=== PATIENT | male | born 1995 | race Caucasian/White ===

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

== ENCOUNTER 2017-01-05 09:51 | Emergency (ER) | payer OTHER ==
[2017-01-05 09:51] VITALS: BMI 47.4
[2017-01-05 10:16] VITALS: O2SAT 96
--- NOTE | 2017-01-05 10:47 | C.PDOC ---
History Of Present Illness 21 yr old male with PMHx of asthma, no hx of intubation or recent ICU admission , obesity, and autism, brought in to ER by mom for evaluation of retrosternal chest pain for the past 2-3 days. Patient describes pain as constant, mild, "annoying", localized and non radiating. Otherwise, pt and mom denies fever, chills, recent illness, headache, dizziness, SOB, palpitations, wheezing, cough , nausea, vomiting, abdominal pain, diarrhea,back pain, denies any other active complaints. Time Seen by Provider: 01/05/17 10:08 Chief Complaint (Nursing): Chest Pain History Per: Patient, Family (Mom) History/Exam Limitations: no limitations Onset/Duration Of Symptoms: Days (2-3 days) Past Medical History Reviewed: Historical Data, Nursing Documentation, Vital Signs Vital Signs: Last Vital Signs Temp 98.4 F 01/05/17 10:01 Pulse 89 01/05/17 10:01 Resp 22 01/05/17 10:01 BP 148/97 H 01/05/17 10:01 Pulse Ox 96 01/05/17 12:26 - Medical History PMH: Asthma Family History: States: No Known Family Hx - Social History Hx Tobacco Use: No Hx Alcohol Use: No Hx Substance Use: No - Immunization History Hx Tetanus Toxoid Vaccination: No Hx Influenza Vaccination: Yes Hx Pneumococcal Vaccination: No Review Of Systems Except As Marked, All Systems Reviewed And Found Negative. Constitutional: Negative for: Fever, Chills Cardiovascular: Positive for: Chest Pain (Retrosternal chest pain ). Negative for: Palpitations Respiratory: Negative for: Cough, Shortness of Breath, Wheezing Gastrointestinal: Negative for: Nausea, Vomiting, Abdominal Pain, Diarrhea Neurological: Negative for: Weakness, Numbness, Headache Physical Exam - Physical Exam Appears: Well, Non-toxic, No Acute Distress Skin: Warm, Dry, No Rash Eye(s): bilateral: PERRL Oral Mucosa: Moist, No Drooling Throat: No Erythema, No Drooling Neck: Trachea Midline, Supple Chest: Symmetrical, No Tenderness Cardiovascular: Rhythm Regular, No Murmur Respiratory: No Decreased Breath Sounds, No Accessory Muscle Use, No Stridor, No Wheezing Gastrointestinal/Abdominal: Soft, No Tenderness, No Distention, No Guarding, No Rebound Extremity: Normal ROM, No Pedal Edema, No Swelling Neurological/Psych: Oriented x3, Normal Speech, Normal Motor ED Course And Treatment - Laboratory Results Result Diagrams: 01/05/17 11:44 01/05/17 11:44 Lab Interpretation: No Acute Changes ECG: Interpreted By Me, Viewed By Me ECG Rhythm: Sinus Rhythm ECG Interpretation: Normal Interpretation Of ECG: SR@85/min, NAD, no acute T wave or ST-T changes. O2 Sat by Pulse Oximetry: 96 (RA) Pulse Ox Interpretation: Normal - Radiology CXR: Interpreted by Me, Viewed By Me CXR Interpretation: Yes: No Acute Disease Progress Note: On re-evaluation, pt is comfopratble, not in any apparent distress, tolerate PO well in ED. Afebrile, hemodynamicaly stable. Non-toxic. Pulseox 96% ra. ENT: no acute findings. Neck: Supple, (-) JVD, (-) carotid bruits. Lungs: CTA B/L, BS equal B/L. CVS: (+)S1S2, reg. Abd: benign. Neurologicaly intact. Diagnostics review, Troponin- and appears normal. CXR- no acute abnormalities. Pt has clinical findings c/w retrosternal pain. resulrs review and discussed with mother. Advised and ref. to F/u with PMD and Card in 2-3 days for re-evaluation. Return to ED if any worsening or new changes. Medical Decision Making Medical Decision Making: PLAN: * CXR * EKG * Troponin * CBC * BMP * Urinalysis * Pepcid PO Disposition Counseled Patient/Family Regarding: Diagnosis, Need For Followup, Rx Given - Disposition Referrals: [facility] [Outside] [facility] [Outside] Disposition: HOME/ ROUTINE Disposition Time: 12:22 Condition: STABLE Additional Instructions: Follow up wit Pediatricain, Cardiology and GI in 2-3 days for re-evaluation. Return to ED if any worsening or new changes. Instructions: Chest Pain (ED) - Clinical Impression Clinical Impression: Chest pain - PA / PRICER / Resident Statement MD/DO has reviewed & agrees with the documentation as recorded. - Scribe Statement The provider has reviewed the documentation as recorded by the Scribe Esmer Ayala All medical record entries made by the Scribe were at my direction and personally dictated by me. I have reviewed the chart and agree that the record accurately reflects my personal performance of the history, physical exam, medical decision making, and the department course for this patient. I have also personally directed, reviewed, and agree with the discharge instructions and disposition.
[2017-01-05 11:47] LABS: BASO % 0.3 % (0.0-2.0); EOS # 0.1 K/uL (0.0-0.7); EOS % 0.7 % (0.0-4.0); HEMATOCRIT 44.7 % (35.0-51.0); LYMPH # 1.2 K/uL (1.0-4.3); LYMPH % 10.9 % (20.0-40.0); MEAN CELL VOLUME 83.6 fL (80.0-94.0); MEAN CORPUSCULAR HEMOGLOBIN 27.5 pg (27.0-31.0); MEAN CORPUSCULAR HGB CONC 32.9 g/dL (33.0-37.0); MEAN PLATELET VOLUME 8.5 fL (7.2-11.7); MONO # 0.3 K/uL (0.0-0.8); MONO % 2.6 % (0.0-10.0); NRBC % 0.1 % (0.0-2.0); RED CELL DISTRIBUTION WIDTH 14.3 % (11.5-14.5)
[2017-01-05 11:51] LABS: RBC URINE < 1 /hpf (0-3); URINE BILIRUBIN NEGATIVE (NEGATIVE); URINE BLOOD NEGATIVE (NEGATIVE); URINE COLOR Yellow (YELLOW); URINE GLUCOSE (UA) NORMAL (Normal); URINE KETONE NEGATIVE (NEGATIVE); URINE LEUKOCYTE ESTERASE NEG Leu/uL (Negative); URINE PROTEIN NEGATIVE (NEGATIVE); WBC URINE < 1 /hpf (0-5)
[2017-01-05 11:55] LABS: CHLORIDE 102 mmol/L (98-107); SODIUM 135 mmol/L (132-148)
[2017-01-05 11:58] LABS: BLOOD UREA NITROGEN 10 mg/dL (9-20); CARBON DIOXIDE 22 mmol/L (22-30); GFR AFRICAN-AMERICAN > 60
[2017-01-05 11:59] LABS: GLUCOSE,RANDOM 89 mg/dL (75-110)
[2017-01-05 12:48] LABS: INR 1.1
[2017-01-05 12:49] VITALS: BP 121/78; PULSE 75; RESP 17; TEMP 97.6
--- NOTE | 2017-01-05 13:26 | RAD ---
HISTORY: chest pain COMPARISON: Comparison chest dated 09/16/2016 TECHNIQUE: Chest PA and lateral FINDINGS: LUNGS: No active pulmonary disease. PLEURA: No significant pleural effusion identified. No pneumothorax apparent. CARDIOVASCULAR: Normal. OSSEOUS STRUCTURES: No significant abnormalities. VISUALIZED UPPER ABDOMEN: Normal. OTHER FINDINGS: None. IMPRESSION: No active disease.
--- NOTE | 2017-01-08 17:19 | CARD ---
APPROVED REPORT EKG Measurement Heart [id number] <Conclusion> Normal sinus rhythm Normal ECG
== END 2017-01-05 12:50 | disposition home or self-care (01) ==
LOC: C.ER 09:51
DX: R07.9 Chest pain, unspecified (principal)

== ENCOUNTER 2017-01-08 13:25 | Emergency (ER) | payer OTHER ==
[2017-01-08 13:25] VITALS: BMI 47.4
[2017-01-08 13:37] VITALS: TEMP 97.6
--- NOTE | 2017-01-08 13:55 | C.PDOC ---
History Of Present Illness 21 yr old male with PMHx of asthma, no hx of intubation or recent ICU admission , obesity, and autism, brought in to ER for persistent chest pain for the past 2 -3 days. Patient was evaluated in the ER 2 days ago for chest pain, with negative CXR, EKG, and troponin x 1, and was discharged home. Follow up call this morning was made, during which mother notes patient was having persistent chest pain, and was advised to return to the ER for further evaluation. As per prior notes, PA who previously evaluated him was concerned for PE. Patient reports that since discharge from ER, he has had persistent chest pain and also some palpitations. Notes has not followed up with PMD, Dr. Lynne. Otherwise, pt and mom deny fever, chills, recent illness, headache, dizziness, SOB, wheezing, cough, nausea, vomiting, abdominal pain, diarrhea,back pain, or any other associated symptoms. Time Seen by Provider: 01/08/17 13:43 Chief Complaint (Nursing): Chest Pain History Per: Patient, Family (mother) History/Exam Limitations: no limitations Onset/Duration Of Symptoms: Days, Persistent Current Symptoms Are (Timing): Still Present Quality: "Pain" Associated Symptoms: denies: Dyspnea, Diaphoresis Exacerbating Factors: None Recent travel outside of the [place]: No Past Medical History Reviewed: Historical Data, Nursing Documentation, Vital Signs Vital Signs: Last Vital Signs Temp 97.6 F 01/08/17 16:50 Pulse 61 01/08/17 16:50 Resp 19 01/08/17 16:50 BP 129/68 01/08/17 16:50 Pulse Ox 98 01/08/17 16:56 - Medical History PMH: Asthma Family History: States: Unknown Family Hx - Social History Hx Tobacco Use: No Hx Alcohol Use: No Hx Substance Use: No - Immunization History Hx Tetanus Toxoid Vaccination: No Hx Influenza Vaccination: Yes Hx Pneumococcal Vaccination: No Review Of Systems Except As Marked, All Systems Reviewed And Found Negative. Constitutional: Negative for: Fever, Chills Cardiovascular: Positive for: Chest Pain, Palpitations Respiratory: Negative for: Cough, Shortness of Breath, SOB with Excertion, Wheezing Gastrointestinal: Negative for: Nausea, Vomiting, Abdominal Pain Musculoskeletal: Negative for: Back Pain Skin: Negative for: Rash Neurological: Negative for: Headache, Dizziness Physical Exam - Physical Exam Appears: Non-toxic, No Acute Distress Skin: Normal Color, Warm, Dry Head: Atraumatic, Normacephalic Eye(s): bilateral: Normal Inspection, PERRL, EOMI Oral Mucosa: Moist Neck: Supple Lymphatic: Normal Exam Chest: Symmetrical Cardiovascular: Rhythm Regular, No Edema Respiratory: Normal Breath Sounds, No Accessory Muscle Use, No Rales, No Rhonchi , No Wheezing Gastrointestinal/Abdominal: Soft, No Tenderness, No Distention, No Guarding, No Rebound Back: Normal Inspection Extremity: Normal ROM, No Pedal Edema, No Calf Tenderness, Capillary Refill (< 2 sec.), No Swelling Extremity: Bilateral: Normal Color And Temperature Neurological/Psych: Oriented x3, Normal Speech, Normal Cognition ED Course And Treatment - Laboratory Results Result Diagrams: 01/08/17 14:34 01/08/17 14:34 O2 Sat by Pulse Oximetry: 98 (RA) Pulse Ox Interpretation: Normal Medical Decision Making Medical Decision Making: PLAN: * EKG, CxR, bloodwork, Pepcid * Reassess PROGRESS: EKG impression: NSR 71 bpm with early repolarization. CxR Impression (as read by radiologist): Cardiomegaly. Biapical pleural thickening. Trop x 1 negative Thyroid studies WNL CTA shows " Visualized portions of the inferior thyroid gland appear unremarkable. The mediastinal and hilar vascular structures appear within normal limits. Triangular soft tissue within the anterior mediastinum appears consistent with residual thymic tissue. The heart appears within normal limits of size. There is suboptimal opacification of the pulmonary arteries due to missed bolus of the intravenous contrast limiting evaluation for pulmonary embolus. Maximum Hounsfield units at the main pulmonary artery measures approximately 165 HU. Given this limitation, there are no visible intraluminal filling defects within the central pulmonary arteries to suggest central pulmonary embolism. No focal consolidation. No pleural effusion. No pneumothorax. No suspicious pulmonary nodules measuring greater than 5 mm. Limited visualized portions of the upper abdomen appear grossly unremarkable. No acute osseous abnormality is detected. " Spoke to mother and patient at length about importance of following up with cardiology and likely need for outpatient holter monitor Disposition - Disposition Referrals: Oseas Middleton MD [Staff Provider] - Disposition: HOME/ ROUTINE Disposition Time: 16:55 Condition: GOOD Additional Instructions: Follow up with Dr. Lynne and cardiology for further evaluation. Return to ED if condition worsens. Instructions: Chest Pain (ED), Palpitations (ED) - Clinical Impression Clinical Impression: Pleuritic pain - Scribe Statement The provider has reviewed the documentation as recorded by the Dayannaibanabella Lopez All medical record entries made by the Dayannaibanabella were at my direction and personally dictated by me. I have reviewed the chart and agree that the record accurately reflects my personal performance of the history, physical exam, medical decision making, and the department course for this patient. I have also personally directed, reviewed, and agree with the discharge instructions and disposition.
[2017-01-08 14:40] LABS: BASO # 0.1 K/uL (0.0-0.2); BASO % 0.6 % (0.0-2.0); EOS # 0.2 K/uL (0.0-0.7); EOS % 1.8 % (0.0-4.0); LYMPH # 2.2 K/uL (1.0-4.3); LYMPH % 19.5 % (20.0-40.0); MEAN CELL VOLUME 83.3 fL (80.0-94.0); MEAN CORPUSCULAR HEMOGLOBIN 27.6 pg (27.0-31.0); MEAN CORPUSCULAR HGB CONC 33.1 g/dL (33.0-37.0); MEAN PLATELET VOLUME 8.3 fL (7.2-11.7); MONO # 0.6 K/uL (0.0-0.8); MONO % 5.5 % (0.0-10.0); RED CELL DISTRIBUTION WIDTH 14.4 % (11.5-14.5); WHITE BLOOD COUNT 11.1 K/uL (4.8-10.8)
[2017-01-08 14:41] VITALS: RESP 19
[2017-01-08 14:47] LABS: CHLORIDE 102 mmol/L (98-107)
[2017-01-08 14:48] LABS: POTASSIUM 3.6 mmol/L (3.6-5.2); SODIUM 140 mmol/L (132-148)
[2017-01-08 14:51] LABS: ALKALINE PHOSPHATASE 88 U/L (38-126); ALT/SGPT 31 U/L (21-72); AST/SGOT 20 U/L (17-59); BLOOD UREA NITROGEN 9 mg/dL (9-20); CALCIUM 9.2 mg/dl (8.6-10.4); GLUCOSE,RANDOM 85 mg/dL (75-110)
[2017-01-08 15:11] LABS: ALB/GLOB RATIO 1.1 (1.0-2.1); BILIRUBIN,TOTAL 0.5 mg/dL (0.2-1.3); CARBON DIOXIDE 22 mmol/L (22-30); GFR AFRICAN-AMERICAN > 60
[2017-01-08 15:21] LABS: THYROID STIMULATING HORMONE 0.53 mIU/L (0.46-4.68)
[2017-01-08] MEDS ORDERED: Iodixanol 320 MG/ML 100 ML BOTTLE IV ONE (15:42)
--- NOTE | 2017-01-08 16:51 | CT ---
CTA chest PE protocol Indication: pleuritic chest pain, persistent pain Technique: Contiguous axial images were obtained through the chest with intravenous contrast enhancement. Sagittal and coronal reconstructions were generated and reviewed. This CT exam was performed using 1 or more of the falling dose reduction techniques: Automated exposure control, adjustment of the MAA and/or kV according to patient size, and/or use of iterative reconstruction technique. IV Contrast: 100 cc Visipaque Radiation dose (DLP): 622.87 MGy-cm. Comparison: Chest x-ray performed 01/05/17 Findings: Visualized portions of the inferior thyroid gland appear unremarkable. The mediastinal and hilar vascular structures appear within normal limits. Triangular soft tissue within the anterior mediastinum appears consistent with residual thymic tissue. The heart appears within normal limits of size. There is suboptimal opacification of the pulmonary arteries due to missed bolus of the intravenous contrast limiting evaluation for pulmonary embolus. Maximum Hounsfield units at the main pulmonary artery measures approximately 165 HU. Given this limitation, there are no visible intraluminal filling defects within the central pulmonary arteries to suggest central pulmonary embolism. No focal consolidation. No pleural effusion. No pneumothorax. No suspicious pulmonary nodules measuring greater than 5 mm. Limited visualized portions of the upper abdomen appear grossly unremarkable. No acute osseous abnormality is detected. Impression: There is suboptimal opacification of the pulmonary arteries due to missed bolus of the intravenous contrast limiting evaluation for pulmonary embolus. Maximum Hounsfield units at the main pulmonary artery measures approximately 165 HU. Given this limitation, there are no visible intraluminal filling defects within the central pulmonary arteries to suggest central pulmonary embolism.
[2017-01-08 16:54] VITALS: BP 129/68; PULSE 61
[2017-01-08 16:56] VITALS: O2SAT 98
--- NOTE | 2017-01-11 12:53 | CARD ---
APPROVED REPORT EKG Measurement Heart [id number] <Conclusion> Normal sinus rhythm with sinus arrhythmia ST elevation, probably due to early repolarization Borderline ECG
== END 2017-01-08 17:19 | disposition home or self-care (01) ==
LOC: C.ER 13:25
DX: R07.81 Pleurodynia (principal)
CPT/HCPCS: 71275; 80053; 84439; 84443; 84484; 85025; 85378; 99285; Q9967

== ENCOUNTER 2017-05-29 09:55 | Emergency (ER) | payer OTHER ==
[2017-05-29 09:56] VITALS: BMI 47.4
[2017-05-29 10:11] VITALS: TEMP 97.8
--- NOTE | 2017-05-29 11:00 | C.PDOC ---
History Of Present Illness Lina Perez is a 21 y/o male with a PMHx of asthma and autism, who presents accompanied by his mother for evaluation of right wrist pain secondary to fall yesterday. There was no head trauma or LOC. Mother also reports patient also has had chest congestion, cough, and runny nose, for which he saw his PMD and has been taking cough syrup. No headache, fever, or chills. PMD: Fritz Lynne Time Seen by Provider: 05/29/17 10:16 Chief Complaint (Nursing): Finger,Hand,&Wrist History Per: Patient, Family (Mother) History/Exam Limitations: no limitations Onset/Duration Of Symptoms: Days (x 2) Current Symptoms Are (Timing): Still Present Past Medical History Reviewed: Historical Data, Nursing Documentation, Vital Signs Vital Signs: Last Vital Signs Temp 97.8 F 05/29/17 10:08 Pulse 77 05/29/17 10:08 Resp 18 05/29/17 10:08 BP 134/77 05/29/17 10:08 Pulse Ox 96 05/29/17 11:29 - Medical History PMH: Asthma Family History: States: Unknown Family Hx - Social History Hx Tobacco Use: No Hx Alcohol Use: No Hx Substance Use: No - Immunization History Hx Tetanus Toxoid Vaccination: No Hx Influenza Vaccination: Yes Hx Pneumococcal Vaccination: No Review Of Systems Except As Marked, All Systems Reviewed And Found Negative. Constitutional: Negative for: Fever, Chills ENT: Positive for: Nose Discharge, Throat Pain Respiratory: Positive for: Cough Musculoskeletal: Positive for: Other (Wrist pain, right) Neurological: Negative for: Headache Physical Exam - Physical Exam Appears: No Acute Distress, Other (Morbidly obese but cooperative) Skin: Normal Color, Warm, Dry Head: Atraumatic, Normacephalic Eye(s): bilateral: Normal Inspection, PERRL, EOMI Cardiovascular: Rhythm Regular, No Murmur Respiratory: Normal Breath Sounds, No Accessory Muscle Use, No Rhonchi, No Wheezing Gastrointestinal/Abdominal: Normal Exam, Soft (but obese) Extremity: Normal ROM (with full ROM of right wrist), No Deformity, No Swelling (or bruising) Pulses: Left Radial: Normal, Right Radial: Normal Neurological/Psych: Oriented x3, Normal Speech ED Course And Treatment O2 Sat by Pulse Oximetry: 96 (RA) Pulse Ox Interpretation: Normal - Other Rad X-Ray Right Wrist X-Ray: Interpreted by Me, Viewed By Me Interpretation: No fracture,no dislocation Medical Decision Making Medical Decision Making: Time: 10:28 Initial Impression: 21 year old male with chest congestion, runny nose, and wrist pain Initial Plan: * Tylenol 975 mg PO * X-Ray Right Wrist No cough or wheezing on examination today. X-Ray is negative for fracture. RUBY wrap applied to wrist. Pt is medically stable for d/c and will follow up with PMD for further evaluation. Counseling was provided regarding diagnosis and need for follow up. There is agreement to discharge plan. Return to ER if symptoms worsen. Disposition Counseled Patient/Family Regarding: Studies Performed, Diagnosis, Need For Followup - Disposition Disposition: HOME/ ROUTINE Disposition Time: 11:24 Condition: STABLE Instructions: Wrist Sprain (ED) Forms: [employer] (Croatian), General Discharge Instructions - POA Present On Arrival: None - Clinical Impression Clinical Impression: Sprain of wrist, right - Scribe Statement The provider has reviewed the documentation as recorded by the Scribe (Deborah Patel) All medical record entries made by the Scribe were at my direction and personally dictated by me. I have reviewed the chart and agree that the record accurately reflects my personal performance of the history, physical exam, medical decision making, and the department course for this patient. I have also personally directed, reviewed, and agree with the discharge instructions and disposition.
--- NOTE | 2017-05-29 11:20 | RAD ---
PROCEDURE: Right Wrist Radiographs. HISTORY: FALL COMPARISON: None. FINDINGS: BONES: No evidence of acute displaced fracture nor dislocation. The osseous structures appear intact. No cortical destructive changes. JOINTS: Normal. No dislocation. SOFT TISSUES: Normal. OTHER FINDINGS: None. IMPRESSION: No evidence of acute displaced fracture of the circulation. Consider followup radiographs in 7-10 days if symptoms persist or occult fracture suspected clinically as most fractures should become radiographically evident in this timeframe s.
[2017-05-29 11:36] VITALS: BP 120/70; PULSE 72; RESP 20; O2SAT 98
== END 2017-05-29 11:36 | disposition home or self-care (01) ==
LOC: C.ER 09:55
DX: S63.501A Unspecified sprain of right wrist, initial encounter (principal); W01.0XXA Fall on same level from slipping, tripping and stumbling without subsequent striking against object, initial encounter; Y92.008 Other place in unspecified non-institutional (private) residence as the place of occurrence of the external cause